=== PATIENT | female | born 1960 | race American Indian/Alaskan Native ===

== ENCOUNTER 2016-08-26 14:09 | Emergency (ER) | payer SELFPAY ==
[2016-08-26 14:33] VITALS: BP 144/88
--- NOTE | 2016-08-26 14:44 | Emergency Department Report ---
Entered by AARON LIMA, acting as scribe for TU CRONIN NP. Chief Complaint: Chest Pain Stated Complaint: CHEST PAIN, HEART DX Time Seen by Provider: 08/26/16 14:34 - HPI History of Present Illness: 56 y/o non-toxic, non ill-appearing female in no acute distress presents to ED c /o chest pain beginning 2 days ago, described as a heavy and aching with persistent soreness, radiating to shoulders bilaterally and noting her pain has moved from left chest to right chest. Exacerbated by deep breaths. Denies radiation to jaw or extremity swelling. Reports Hx cardiac stents, heart disease. Endorses mild SOB. - ROS Review of Systems: + chest pain, aching, radiating + sob - abdominal pain, nausea, vomiting, extremity swelling - Exam Vital Signs: Vital Signs 08/26/16 14:29 Temperature 98.0 F Pulse Rate 74 Respiratory 18 Rate Blood Pressure 144/88 O2 Sat by Pulse 99 Oximetry Physical Exam: Cardio: Normal S1 S2 heart sounds, no murmurs Resp: Clear to auscultation bilaterally Pt is non-toxic, non ill appearing, no acute distress Nonreproducible Chest pain MSE screening note: Focused history and physical exam performed. Due to findings the following was ordered: CBC, troponin, cardiac CK, CMP, BNP, UA, CXR ED Disposition for MSE Condition: Stable This documentation as recorded by the scribe,AARON LIMA,accurately reflects the service I personally performed and the decisions made by MEHRDAD snider MARTIN, VELASQUEZ.
[2016-08-26 14:58] LABS: Basophils % (Auto) 0.4 % (0.0-1.8); Eosinophils % (Auto) 1.6 % (0.0-4.3); Hematocrit 37.4 % (30.3-42.9); Hemoglobin 12.1 gm/dl (10.1-14.3); Mean Corpuscular HGB Conc 33 % (30-34); Mean Corpuscular Hemoglobin 30 pg (28-32); Mean Corpuscular Volume 91 fl (79-97); Platelet Count 195 K/mm3 (140-440); Red Blood Count 4.12 M/mm3 (3.65-5.03); Red Cell Distribution Width 12.9 % (13.2-15.2)
[2016-08-26 15:24] LABS: Creatine Kinase MB 1.6 ng/mL (0.0-4.0)
[2016-08-26 15:27] LABS: Alanine Aminotransferase 24 units/L (7-56); Albumin 4.2 g/dL (3.9-5); Albumin/Globulin Ratio 1.4 %; Alkaline Phosphatase 59 units/L (35-129); Anion Gap 18 mmol/L; BUN/Creatinine Ratio 18.75; Blood Urea Nitrogen 15 mg/dL (7-17); Calcium 9.3 mg/dL (8.4-10.2); Carbon Dioxide 25 mmol/L (22-30); Creatine Kinase 137 units/L (30-135); Glucose 104 mg/dL (65-100); Sodium 139 mmol/L (137-145); Total Protein 7.1 g/dL (6.3-8.2)
[2016-08-26] MEDS ORDERED: ASPIRIN PO ONE (16:07)
[2016-08-26 19:31] LABS: Bacteria,Urine 1+ /HPF (Negative); Bilirubin,Urine NEG (Negative); Blood,Urine MOD (Negative); Ketones,Urine NEG (Negative); Leukocyte Esterase,Urine LG (Negative); Mucus,Urine FEW /HPF; Nitrite,Urine NEG (Negative); Protein,Urine <15 mg/dL mg/dL (Negative); Urobilinogen,Urine < 2.0 mg/dL (<2.0)
--- NOTE | 2016-08-27 07:28 | XRay Report ---
ROUTINE CHEST, TWO VIEWS: HISTORY: chest pain. The trachea, heart, mediastinal contour, lung rosenberg and bony thorax are unremarkable. IMPRESSION: Unremarkable chest x-ray.
--- NOTE | 2016-08-29 19:22 | ED Elopement Review ---
ED Pt Elopement review - Results review Lab results: Laboratory Tests 08/26/16 08/26/16 08/26/16 14:42 14:42 19:01 WBC 7.0 RBC 4.12 Hgb 12.1 Hct 37.4 MCV 91 MCH 30 MCHC 33 RDW 12.9 L Plt Count 195 Lymph % (Auto) 32.0 [place] % (Auto) 7.5 H Eos % (Auto) 1.6 Baso % (Auto) 0.4 Lymph # 2.2 [place] # 0.5 Eos # 0.1 Baso # 0.0 Seg Neutrophils % 58.5 Seg Neutrophils # 4.1 Sodium 139 Potassium 4.0 Chloride 100.0 Carbon Dioxide 25 Anion Gap 18 BUN 15 Creatinine 0.8 Estimated GFR > 60 BUN/Creatinine Ratio 18.75 Glucose 104 H Calcium 9.3 Total Bilirubin 0.60 AST 22 ALT 24 Alkaline Phosphatase 59 Total Creatine Kinase 137 H CK-MB (CK-2) 1.6 CK-MB (CK-2) Rel Index 1.1 Troponin T < 0.010 NT-Pro-B Natriuret Pep 76.06 Total Protein 7.1 Albumin 4.2 Albumin/Globulin Ratio 1.4 Urine Color Yellow Urine Turbidity Slightly-cloudy Urine pH 5.0 Ur Specific Bassett 1.018 Urine Protein <15 mg/dl Urine Glucose (UA) Neg Urine Ketones Neg Urine Blood Mod Urine Nitrite Neg Urine Bilirubin Neg Urine Urobilinogen < 2.0 Ur Leukocyte Esterase Lg Urine WBC (Auto) 2.0 Urine RBC (Auto) 9.0 U Epithel Cells (Auto) 11.0 Urine Bacteria (Auto) 1+ Urine Mucus Few - Call Back decision Pt Call Back Decision: No action required
== END 2016-08-26 20:50 | disposition left against medical advice (07) ==
LOC: ED 14:09
DX: R07.9 Chest pain, unspecified (principal); M25.511 Pain in right shoulder; M25.512 Pain in left shoulder; Z53.21 Procedure and treatment not carried out due to patient leaving prior to being seen by health care provider
CPT/HCPCS: 36415; 71020; 80053; 81001; 82550; 82553; 83880; 84484; 85025; 93005; 93010

== ENCOUNTER 2017-01-07 17:56 | Inpatient (IN) | payer OTHER ==
[2017-01-07 18:59] LABS: Basophils % (Auto) 0.5 % (0.0-1.8); Eosinophils % (Auto) 3.1 % (0.0-4.3); Hematocrit 39.3 % (30.3-42.9); Hemoglobin 13.2 gm/dl (10.1-14.3); Mean Corpuscular HGB Conc 34 % (30-34); Mean Corpuscular Hemoglobin 29 pg (28-32); Mean Corpuscular Volume 87 fl (79-97); Platelet Count 186 K/mm3 (140-440); Red Blood Count 4.51 M/mm3 (3.65-5.03); White Blood Count 4.8 K/mm3 (4.5-11.0)
[2017-01-07 19:11] LABS: Anion Gap 19 mmol/L; Blood Urea Nitrogen 21 mg/dL (7-17); Calcium 9.6 mg/dL (8.4-10.2); Carbon Dioxide 24 mmol/L (22-30); Chloride 98.7 mmol/L (98-107); Glucose 148 mg/dL (65-100); Potassium 3.2 mmol/L (3.6-5.0); Sodium 138 mmol/L (137-145)
[2017-01-08] MEDS ORDERED: K-DUR PO ONE (02:08)
--- NOTE | 2017-01-08 02:09 | Emergency Department Report ---
ED General Adult HPI - General Chief complaint: Chest Pain Stated complaint: CHEST PAIN Time Seen by Provider: 01/08/17 02:07 Source: patient, RN notes reviewed Mode of arrival: Wheelchair Limitations: No Limitations - History of Present Illness Initial comments: This is a 56-year-old female, the patient is previously unknown to me. 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 She endorses diaphoresis, shortness of breath, palpitations and malaise. The symptoms are intermittent, and do not have exacerbating or relieving factors. There is no leg pain, there is no leg swelling, no recent trips greater than 4 hours, no recent hospital admissions, patient endorses no recent cardiac risk stratification or stress test. -: Gradual Location: chest Severity scale (0 -10): 5 Quality: aching Consistency: intermittent Improves with: none Worsens with: none Associated Symptoms: chest pain - Related Data Home Medications Medication Instructions Recorded Confirmed Last Taken Lisinopril/Hydrochlorothiazide 1 tab PO QDAY 06/13/13 01/08/17 12/09/16 [Zestoretic 20-12.5 mg] Metoprolol [Lopressor TAB] 50 mg PO BID 06/13/13 01/08/17 01/08/17 Previous Rx's Medication Instructions Recorded Last Taken Type Ibuprofen [Motrin] 800 mg PO TID PRN #20 tablet 06/13/13 11/09/16 Rx Allergies Allergy/AdvReac Type Severity Reaction Status Date / Time No Known Allergies Allergy Unverified 06/13/13 12:06 ED Review of Systems ROS: Stated complaint: CHEST PAIN Other details as noted in HPI Constitutional: malaise. denies: fever Eyes: denies: eye discharge ENT: denies: epistaxis Respiratory: denies: cough Cardiovascular: chest pain, palpitations Gastrointestinal: denies: vomiting Genitourinary: denies: dysuria Musculoskeletal: denies: back pain Skin: denies: lesions Neurological: weakness Psychiatric: anxiety ED Past Medical Hx - Past Medical History Previous Medical History?: Yes Hx Hypertension: Yes Hx Heart Attack/AMI: Yes (2005) Hx GERD: Yes Additional medical history: CAD - Surgical History Past Surgical History?: Yes Hx Coronary Stent: Yes Additional Surgical History: high cholesterol - Social History Smoking Status: Current Some Day Smoker Substance Use Type: Alcohol - Medications Home Medications: Home Medications Medication Instructions Recorded Confirmed Last Taken Type Ibuprofen [Motrin] 800 mg PO TID PRN #20 tablet 06/13/13 01/08/17 11/09/16 Rx Lisinopril/Hydrochlorothiazide 1 tab PO QDAY 06/13/13 01/08/17 12/09/16 History [Zestoretic 20-12.5 mg] Metoprolol [Lopressor TAB] 50 mg PO BID 06/13/13 01/08/17 01/08/17 History ED Physical Exam - General Limitations: No Limitations General appearance: alert, in no apparent distress - Head Head exam: Present: atraumatic, normocephalic - Eye Eye exam: Present: normal appearance, EOMI. Absent: nystagmus - ENT ENT exam: Present: normal exam, normal orophraynx, mucous membranes moist, normal external ear exam - Neck Neck exam: Present: normal inspection, full ROM. Absent: tenderness, meningismus - Respiratory Respiratory exam: Present: normal lung sounds bilaterally. Absent: respiratory distress, wheezes, rales, rhonchi, stridor, chest wall tenderness - Cardiovascular Cardiovascular Exam: Present: regular rate, normal rhythm, normal heart sounds. Absent: bradycardia, tachycardia, irregular rhythm, systolic murmur, diastolic murmur, rubs, gallop - GI/Abdominal GI/Abdominal exam: Present: soft, normal bowel sounds. Absent: distended, tenderness, guarding, rebound, rigid, pulsatile mass - Extremities Exam Extremities exam: Present: normal inspection, full ROM, normal capillary refill. Absent: tenderness, pedal edema, joint swelling, calf tenderness - Back Exam Back exam: Present: normal inspection, full ROM. Absent: tenderness, CVA tenderness (R), CVA tenderness (L), muscle spasm, paraspinal tenderness, vertebral tenderness - Neurological Exam Neurological exam: Present: alert, oriented X3, normal gait, other (Extraocular movements intact. Tongue midline. No facial droop. Facial sensation intact to light touch in the V1, V2, V3 distribution bilaterally. 5 and 5 strength in 4 extremities.. Sensation is intact to light touch in 4 extremities.). Absent : motor sensory deficit - Psychiatric Psychiatric exam: Present: normal affect, normal mood - Skin Skin exam: Present: warm, dry, intact, normal color. Absent: rash ED Course Vital Signs 01/07/17 01/08/17 01/08/17 18:24 01:10 01:16 Temperature 98.6 F Pulse Rate 90 72 74 Respiratory 16 16 13 Rate Blood Pressure 163/93 153/83 O2 Sat by Pulse 97 99 Oximetry 01/08/17 01:19 Temperature 96.8 F L Pulse Rate Respiratory 17 Rate Blood Pressure O2 Sat by Pulse 100 Oximetry ED Medical Decision Making - Lab Data Result diagrams: 01/07/17 18:38 01/07/17 18:38 Vital Signs 01/07/17 01/08/17 01/08/17 18:24 01:10 01:16 Temperature 98.6 F Pulse Rate 90 72 74 Respiratory 16 16 13 Rate Blood Pressure 163/93 153/83 O2 Sat by Pulse 97 99 Oximetry 01/08/17 01/08/17 01:19 04:22 Temperature 96.8 F L Pulse Rate Respiratory 17 Rate Blood Pressure 148/78 O2 Sat by Pulse 100 Oximetry Lab Results 01/07/17 01/07/17 01/07/17 Range/Units 18:38 18:38 20:45 WBC 4.8 (4.5-11.0) K/mm3 RBC 4.51 (3.65-5.03) M/mm3 Hgb 13.2 (10.1-14.3) gm/dl Hct 39.3 (30.3-42.9) % MCV 87 (79-97) fl MCH 29 (28-32) pg MCHC 34 (30-34) % RDW 13.0 L (13.2-15.2) % Plt Count 186 (140-440) K/mm3 Lymph % (Auto) 33.7 (13.4-35.0) % [place] % (Auto) 6.6 (0.0-7.3) % Eos % (Auto) 3.1 (0.0-4.3) % Baso % (Auto) 0.5 (0.0-1.8) % Lymph # 1.6 (1.2-5.4) K/mm3 [place] # 0.3 (0.0-0.8) K/mm3 Eos # 0.1 (0.0-0.4) K/mm3 Baso # 0.0 (0.0-0.1) K/mm3 Seg Neutrophils % 56.1 (40.0-70.0) % Seg Neutrophils # 2.7 (1.8-7.7) K/mm3 Sodium 138 (137-145) mmol/L Potassium 3.2 L (3.6-5.0) mmol/L Chloride 98.7 (98-107) mmol/L Carbon Dioxide 24 (22-30) mmol/L Anion Gap 19 mmol/L BUN 21 H (7-17) mg/dL Creatinine 0.6 L (0.7-1.2) mg/dL Estimated GFR > 60 ml/min BUN/Creatinine Ratio 35.00 % Glucose 148 H (65-100) mg/dL Calcium 9.6 (8.4-10.2) mg/dL Magnesium (1.7-2.3) mg/dL Troponin T < 0.010 < 0.010 (0.00-0.029) ng/mL 01/08/17 01/08/17 Range/Units 00:19 02:30 WBC (4.5-11.0) K/mm3 RBC (3.65-5.03) M/mm3 Hgb (10.1-14.3) gm/dl Hct (30.3-42.9) % MCV (79-97) fl MCH (28-32) pg MCHC (30-34) % RDW (13.2-15.2) % Plt Count (140-440) K/mm3 Lymph % (Auto) (13.4-35.0) % [place] % (Auto) (0.0-7.3) % Eos % (Auto) (0.0-4.3) % Baso % (Auto) (0.0-1.8) % Lymph # (1.2-5.4) K/mm3 [place] # (0.0-0.8) K/mm3 Eos # (0.0-0.4) K/mm3 Baso # (0.0-0.1) K/mm3 Seg Neutrophils % (40.0-70.0) % Seg Neutrophils # (1.8-7.7) K/mm3 Sodium (137-145) mmol/L Potassium (3.6-5.0) mmol/L Chloride (98-107) mmol/L Carbon Dioxide (22-30) mmol/L Anion Gap mmol/L BUN (7-17) mg/dL Creatinine (0.7-1.2) mg/dL Estimated GFR ml/min BUN/Creatinine Ratio % Glucose (65-100) mg/dL Calcium (8.4-10.2) mg/dL Magnesium 2.20 (1.7-2.3) mg/dL Troponin T < 0.010 (0.00-0.029) ng/mL - EKG Data 01/08/17 04:23 EKG #1 demonstrates normal sinus, 82 bpm, high left ventricular voltage, normal axis, QTC prolonged, not morphologically consistent with STEMI. EKG #2 demonstrates normal sinus, 71 bpm, normal axis, not morphologically consistent with STEMI - Radiology Data Radiology results: image reviewed interpreted by me: X-ray of the chest is negative for acute disease - Medical Decision Making Differential diagnosis: Acute coronary syndrome, unstable angina, pneumonia, anxiety, conversion disorder, electrolyte derangement Assessment and plan: 56-year-old female with stent, poor compliance with aspirin , poor compliance with outpatient follow-up, some concerning historical factors , moderate risk by heart score, no pulmonary embolus or DVT risk factors, low risk by well's criteria, to be admitted for acute coronary syndrome risk stratification. Incidentally found to be hypokalemic, this is corrected. Case is presented to the Hospital physician, Dr. Martino, who accepts the patient to his service. Critical care attestation.: If time is entered above; I have spent that time in minutes in the direct care of this critically ill patient, excluding procedure time. ED Disposition Clinical Impression: Chest pain, Hypokalemia Disposition: -09 OP ADMIT IP TO THIS HOSP Is pt being admited?: Yes Condition: Good
[2017-01-08] MEDS ORDERED: NITROSTAT SL PRN (03:34)
[2017-01-08] MEDS ORDERED: NITRO-BID 2% TP ONE (04:20)
[2017-01-08] MEDS: NITRO-BID 2% TP SCH ×4 (04:22→17:55)
[2017-01-08] MEDS ORDERED: MORPHINE IV PRN (04:44)
[2017-01-08] MEDS ORDERED: ZOFRAN IV PRN (04:46)
--- NOTE | 2017-01-08 06:54 | History and Physical Report ---
CHIEF COMPLAINT: Chest pain. HISTORY OF PRESENT ILLNESS: The patient is a 56-year-old female presenting with chest pain going on and off for about 4 days. Pain is in the precordial retrosternal area, radiates to the shoulder area and upper extremity and was associated with shortness of breath, diaphoresis, and palpitation. There was no history of nausea or vomiting. There was also no history of dizziness. The patient presented to the Emergency Room. The pain was relieved with pain medication. PAST MEDICAL HISTORY: Pertinent for hypertension, coronary artery disease status post myocardial infarction in 2005, also the patient has past history of gastroesophageal reflux disease. PAST SURGICAL HISTORY: Pertinent for stent placement. FAMILY HISTORY: Noncontributory. SOCIAL HISTORY: The patient smokes cigarettes, drinks alcohol occasionally, and does not use illicit drugs. MEDICATIONS: The patient is on ibuprofen 800 mg 3 times daily as needed for pain, lisinopril/HCTZ 20/12.5 one p.o. daily. The patient is also on metoprolol 50 mg by mouth twice daily. ALLERGIES: There are no known drug allergies. REVIEW OF SYSTEMS: CONSTITUTIONAL: There is no fever, no chills. Diaphoresis present. HEENT: There is no headache or sore throat. CARDIOVASCULAR SYSTEM: There is chest pain, but no orthopnea. RESPIRATORY SYSTEM: There is shortness of breath and no cough. GASTROINTESTINAL SYSTEM: There is no nausea, no vomiting, no abdominal pain, diarrhea or constipation. NEUROLOGICAL SYSTEM: There is no numbness, no dizziness, no altered mental status. MUSCULOSKELETAL SYSTEM: There is no joint pain or swelling. DERMATOLOGICAL SYSTEM: There is no skin rash or itching. GENITOURINARY: There is no dysuria, hematuria, or flank pain. Rest of system review is normal. PHYSICAL EXAMINATION: GENERAL: At the time of exam, the patient was found to be alert, oriented x 3 and not in acute distress. VITAL SIGNS: Shows temperature of 96.8 degrees Fahrenheit, pulse of 74, respiration of 13, blood pressure , O2 sat of 99% on room air. HEENT: Shows pupils appear to be equal, round, reactive to light and accommodating. Extraocular muscles are intact. NECK: Supple with no JVD or carotid bruit. CARDIOVASCULAR SYSTEM: Show first and second heart sounds with no gallops or murmurs. RESPIRATORY SYSTEM: Showed good air entry on both sides of the lungs with no abnormal breath sounds. GASTROINTESTINAL SYSTEM: Show abdomen to be full, soft, nontender with no organomegaly or rigidity. NEUROLOGICAL: Shows no focal deficit. MUSCULOSKELETAL SYSTEM: Show no joint swelling or tenderness. DERMATOLOGICAL SYSTEM: Showing no skin rash. GENITOURINARY SYSTEM: Showed no costovertebral angle tenderness. PERTINENT LABORATORY DATA AND IMAGING STUDIES: The patient has CBC done, which shows normal WBC, normal hemoglobin and normal hematocrit. CBC differential was unremarkable. Chemistry showed low potassium level of 3.2 and a slightly elevated BUN of 21 with an unremarkable creatinine and normal GFR of greater than 60. Cardiac enzyme: The patient had 3 sets of troponin level done that were unremarkable. Magnesium level came back normal. IMAGING STUDIES: The patient had chest x-ray done that shows hyperinflated lungs with no acute cardiopulmonary lesion. DIAGNOSES: 1. Chest pain. 2. Hypokalemia. PLAN: The patient will be admitted to medical floor on telemetry and will be n.p.o. for Lexiscan stress test in the morning. The patient will be on nitro paste 1 inch to anterior chest wall q. 6 hours and will be on aspirin 325 mg by mouth daily. The patient will be on heparin 5000 units subQ q. 12 hours for DVT prophylaxis and will be on sublingual nitroglycerin 0.4 mg every 5 minutes as needed for breakthrough chest pain. The patient has already had one dose of potassium chloride 40 mEq given in the Emergency Room and will have basic metabolic panel checked this morning. The patient will be on oxygen by nasal cannula at 2 liters per minute and will be on morphine 2 mg IV q. 2 hours as needed for pain. The patient will also be on IV Zofran 4 mg every 6 hours for nausea and vomiting. Further management of the patient's condition will be dependent on the stress test. JOB# [id number] OCN/NTS
--- NOTE | 2017-01-08 07:27 | XRay Report ---
ROUTINE CHEST, TWO VIEWS: HISTORY: chest pain. The trachea, heart, mediastinal contour, lung rosenberg and bony thorax are unremarkable. IMPRESSION: Unremarkable chest x-ray. No change since 08/26/16.
[2017-01-08 07:40] LABS: Anion Gap 18 mmol/L; BUN/Creatinine Ratio 33.33; Blood Urea Nitrogen 20 mg/dL (7-17); Carbon Dioxide 24 mmol/L (22-30); Chloride 103.2 mmol/L (98-107); Glucose 105 mg/dL (65-100); Sodium 141 mmol/L (137-145)
[2017-01-08] MEDS ORDERED: LEXISCAN IV ONE (08:55)
[2017-01-08] MEDS ORDERED: NON-FORMULARY (Lisinopril/Hydrochlorothiazide [Zestoretic 20-12.5 Mg] 1 TAB) PO SCH (10:00)
--- NOTE | 2017-01-08 10:15 | Progress Note ---
Assessment and Plan Assessment and plan: Chest pain. Patient reportedly with history of CAD and coronary stent placement. Follow-up stress thallium results. Continue aspirin, ADRIEL inhibitor and beta komal. Cardiology consultation pending. Hypertension. Resume antihypertensive medications. Lopressor and Zestril. Anemia. Monitor H&H. Hypercholesterolemia History Interval history: No new issues since admission. Hospitalist Physical - Constitutional Vitals: Temp Pulse Resp BP Pulse Ox 97.5 F L 78 18 149/80 99 01/08/17 05:30 01/08/17 05:30 01/08/17 05:30 01/08/17 05:30 01/08/17 05:30 General appearance: Present: no acute distress, well-nourished - EENT Eyes: Present: PERRL, EOM intact ENT: hearing intact, clear oral mucosa, dentition normal - Neck Neck: Present: supple, normal ROM - Respiratory Respiratory effort: normal Respiratory: bilateral: CTA - Cardiovascular Rhythm: regular Heart Sounds: Present: S1 & S2. Absent: gallop, rub - Extremities Extremities: no ischemia, No edema, Full ROM - Abdominal General gastrointestinal: soft, non-tender, non-distended, normal bowel sounds - Integumentary Integumentary: Present: clear, warm, dry - Neurologic Neurologic: CNII-XII intact, moves all extremities Results - Labs CBC & Chem 7: 01/07/17 18:38 01/08/17 06:40 Labs: Laboratory Last Values WBC 4.8 K/mm3 (4.5-11.0) 01/07/17 18:38 RBC 4.51 M/mm3 (3.65-5.03) 01/07/17 18:38 Hgb 13.2 gm/dl (10.1-14.3) 01/07/17 18:38 Hct 39.3 % (30.3-42.9) 01/07/17 18:38 MCV 87 fl (79-97) 01/07/17 18:38 MCH 29 pg (28-32) 01/07/17 18:38 MCHC 34 % (30-34) 01/07/17 18:38 RDW 13.0 % (13.2-15.2) L 01/07/17 18:38 Plt Count 186 K/mm3 (140-440) 01/07/17 18:38 Lymph % (Auto) 33.7 % (13.4-35.0) 01/07/17 18:38 [place] % (Auto) 6.6 % (0.0-7.3) 01/07/17 18:38 Eos % (Auto) 3.1 % (0.0-4.3) 01/07/17 18:38 Baso % (Auto) 0.5 % (0.0-1.8) 01/07/17 18:38 Lymph # 1.6 K/mm3 (1.2-5.4) 01/07/17 18:38 [place] # 0.3 K/mm3 (0.0-0.8) 01/07/17 18:38 Eos # 0.1 K/mm3 (0.0-0.4) 01/07/17 18:38 Baso # 0.0 K/mm3 (0.0-0.1) 01/07/17 18:38 Seg Neutrophils % 56.1 % (40.0-70.0) 01/07/17 18:38 Seg Neutrophils # 2.7 K/mm3 (1.8-7.7) 01/07/17 18:38 Sodium 141 mmol/L (137-145) 01/08/17 06:40 Potassium 4.0 mmol/L (3.6-5.0) D 01/08/17 06:40 Chloride 103.2 mmol/L (98-107) 01/08/17 06:40 Carbon Dioxide 24 mmol/L (22-30) 01/08/17 06:40 Anion Gap 18 mmol/L 01/08/17 06:40 BUN 20 mg/dL (7-17) H 01/08/17 06:40 Creatinine 0.6 mg/dL (0.7-1.2) L 01/08/17 06:40 Estimated GFR > 60 ml/min 01/08/17 06:40 BUN/Creatinine Ratio 33.33 % 01/08/17 06:40 Glucose 105 mg/dL (65-100) H 01/08/17 06:40 Calcium 9.0 mg/dL (8.4-10.2) 01/08/17 06:40 Magnesium 2.20 mg/dL (1.7-2.3) 01/08/17 02:30 Troponin T < 0.010 ng/mL (0.00-0.029) 01/08/17 00:19
--- NOTE | 2017-01-08 11:26 | Consultation ---
History of Present Illness Consult date: 01/08/17 Requesting physician: CHON MOREJON Consult reason: chest pain History of present illness: The pt is a 56 YO female with a past medical history significant for HTN, HLP, CAD s/p [place] with PCI of proximal left circ in 2005 at [place], anemia requiring multiple blood transfusions, anxiety, tobacco use (smokes 3-4 cigarettes daily) and ETOH use (drinks 3 glasses of wine daily). She is previously unknown to our practice. She states the last savings counselor she saw was at [place] in April,. She presented with c/o chest pain for the past 3-4 days prior to arrival. She describes the pain as a nonexertional, nonradiating, intermittent left sided aching pain which was associated with SOB, diaphoresis, palpitations and lightheadedness. The pain is aggravated by lying flat and alleviated by sitting upright. She also reports some right sided chest soreness for 1-2 days [employer]CH[employer]ICAL [employer]ICE [employer]. She denies any recent fever, chills, cough, n/v or syncope. On evaluation, she states that the chest pain has resolved since nitro patch was placed. The pain is not reproducible with palpation. She underwent stress test this AM and results are pending. Past History Past Medical History: CAD, hypertension, hyperlipidemia, other (PCI in 2005) Past Surgical History: hysterectomy Social history: smoking, alcohol abuse. denies: prescription drug abuse Family history: diabetes Medications and Allergies Allergies Allergy/AdvReac Type Severity Reaction Status Date / Time No Known Allergies Allergy Unverified 06/13/13 12:06 Home Medications Medication Instructions Recorded Confirmed Last Taken Type Ibuprofen [Motrin] 800 mg PO TID PRN #20 tablet 06/13/13 01/08/17 11/09/16 Rx Lisinopril/Hydrochlorothiazide 1 tab PO QDAY 06/13/13 01/08/17 12/09/16 History [Zestoretic 20-12.5 mg] Metoprolol [Lopressor TAB] 50 mg PO BID 06/13/13 01/08/17 01/08/17 History Active Meds: Active Medications Aspirin (Aspirin) 325 mg PO DAILY [facility] Heparin Sodium (Porcine) (Heparin) 5,000 unit SUB-Q Q12HR [facility]ERY[facility] Hydrochlorothiazide (Hctz) 12.5 mg PO QDAY [facility] Lisinopril (Zestril) 20 mg PO QDAY [facility] Metoprolol Tartrate (Lopressor) 50 mg PO BID [facility] Morphine Sulfate (Morphine) 2 mg IV Q2H PRN PRN Reason: Pain, Moderate (4-6) Nitroglycerin (Nitrostat) 0.4 mg SL Q5M PRN PRN Reason: Chest Pain Nitroglycerin (Nitro-Bid 2%) 1 inch TP QIDNTG [facility] PRN Reason: Protocol Last Admin: 01/08/17 04:22 Dose: 1 inch Ondansetron HCl (Zofran) 4 mg IV Q6H PRN PRN Reason: Nausea And Vomiting Review of Systems Constitutional: sweats, no weight loss, no weight gain, no fever, no chills Ears, nose, mouth and throat: no ear pain, no nose pain, no sinus pressure, no sinus pain Cardiovascular: chest pain, palpitations, lightheadedness, shortness of breath, high blood pressure, no orthopnea, no rapid/irregular heart beat, no edema, no syncope, no dyspnea on exertion, no paroxysmal nocturnal dyspnea, no leg edema, no decreased exercise tolerance Respiratory: shortness of breath, no cough, no dyspnea on exertion, no congestion, no wheezing, no pain on inspiration Gastrointestinal: no abdominal pain, no nausea, no vomiting, no diarrhea, no constipation, no change in bowel habits Genitourinary Female: no pelvic pain, no flank pain, no dysuria, no urinary frequency, no urgency Musculoskeletal: no neck stiffness, no neck pain, no shooting arm pain, no arm numbness/tingling, no low back pain, no shooting leg pain, no leg numbness/ tingling, no redness of joints Integumentary: no rash, no pruritis, no redness, no sores, no wounds Neurological: no head injury, no paralysis, no weakness, no parathesias, no numbness, no tingling, no seizures Psychiatric: anxiety Endocrine: no cold intolerance, no heat intolerance Hematologic/Lymphatic: no easy bruising, no easy bleeding, no lymphadenopathy Allergic/Immunologic: no urticaria, no wheezing, no persistent infections Physical Examination Vital Signs Temp Pulse Resp BP Pulse Ox 98.6 F 90 16 163/93 97 01/07/17 18:24 01/07/17 18:24 01/07/17 18:24 01/07/17 18:24 01/07/17 18:24 General appearance: no acute distress HEENT: Positive: PERRL, Normocephaly, Mucus Membranes Moist Neck: Positive: neck supple, trachea midline Cardiac: Positive: Reg Rate and Rhythm, S1/S2, Systolic Murmur Lungs: Positive: clear to auscultation Neuro: Positive: Grossly Intact, Cranial Nerve 2-12 Intact Abdomen: Positive: Unremarkable, Soft, Active Bowel Sounds. Negative: Tender Skin: Positive: Clear. Negative: Rash Musculoskeletal: No Fluid Collection, No Pain, Normal Range of Motion Extremities: Absent: edema Results 01/07/17 18:38 01/08/17 06:40 Comprehensive Metabolic Panel 01/08/17 Range/Units 06:40 Sodium 141 (137-145) mmol/L Potassium 4.0 D (3.6-5.0) mmol/L Chloride 103.2 (98-107) mmol/L Carbon Dioxide 24 (22-30) mmol/L BUN 20 H (7-17) mg/dL Creatinine 0.6 L (0.7-1.2) mg/dL Glucose 105 H (65-100) mg/dL Calcium 9.0 (8.4-10.2) mg/dL - Imaging and Cardiology Echo: pending EKG: image reviewed EKG interpretations - Telemetry EKG Rhythm: Sinus Rhythm - EKG Sinus rhythms and dysrhythmias: sinus rhythm Repolarization changes or abnormalities: nonspecific abnormality, ST segment, and/or T wave Assessment and Plan Assessment: Chest pain, atypical - ECG with NAF; troponin negative for AMI x 3 sets CAD s/p SC with PCI of proximal left circ in 2005 at [place] HTN HLP Hypokalemia - repleted H/o anemia requiring multiple blood transfusions - H/H currently WNL Tobacco use / ETOH use - cessation encouraged Plan: Lexiscan MPI stress test this AM was negative for ischemia, EF 63%. Obtain echo. Cont ASA 325, lopressor and lisinopril/HCTZ. Titrate as necessary for BP optimization. Obtain lipid panel. Plan to initiate lovastatin as OP d/t pt's current lack of insurance and financial difficulties. Assessment and plan reviewed with pt at bedside. The patient has been seen in conjunction with Dr. Agrawal who agrees with the assessment and plan of care.
[2017-01-08] MEDS: HCTZ PO SCH (11:38)
[2017-01-08] MEDS: ASPIRIN PO SCH (11:38)
[2017-01-08] MEDS: ZESTRIL PO SCH (11:40)
[2017-01-08] MEDS: LOPRESSOR PO SCH ×2 (11:42→21:30)
[2017-01-08] MEDS: HEPARIN SUB-Q SCH ×2 (11:43→21:29)
[2017-01-09 05:58] VITALS: BP 141/78
[2017-01-09] MEDS: NITRO-BID 2% TP SCH ×2 (06:43→09:30)
--- NOTE | 2017-01-09 07:49 | Discharge Summary ---
Providers - Providers Date of Admission: 01/08/17 03:33 Date of discharge: 01/09/17 Attending physician: CHON MOREJON 01/08/17 07:57 Consult to Physician [CONS] Routine Consulting Provider: JENIFER JIMENEZ Reason For Exam: cp Place consult to:: Dr. Jimenez Notified:: Alvin ISAAC Was contact made?: Yes If yes, spoke with:: Dr. Agrawal Time called:: 08:57 Primary care physician: TREE SAPPER Hospitalization Reason for admission: cp Condition: Good Hospital course: The pt is a 56 YO female with a past medical history significant for HTN, HLP, CAD s/p [place] with PCI of proximal left circ in 2005 at [place], anemia requiring multiple blood transfusions, anxiety, tobacco use (smokes 3-4 cigarettes daily) and ETOH use (drinks 3 glasses of wine daily) presented with c/o chest pain for the past 3-4 days prior to admission. She described the pain as a nonexertional , nonradiating, intermittent left sided aching pain which was associated with SOB, diaphoresis, palpitations and lightheadedness. The pain was aggravated by lying flat and alleviated by sitting upright. 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 She denied any recent fever, chills, cough, n/v or syncope. The patient was seen by cardiology in consultation. The patient had EKG with no acute findings. Troponin negative for a [place] 3 sets. Lexiscan stress test was found to be negative. Ejection fraction was noted to be 63%. Echocardiogram was completed and will be followed up with cardiology as an outpatient. D-dimer was found to be negative. Dedicated discharge time 31 minutes. Disposition: DC-01 TO HOME OR SELFCARE Time spent for discharge: 31 Core Measure Documentation - Palliative Care Palliative Care/ Comfort Measures: Not Applicable - Core Measures Any of the following diagnoses?: none Exam - Constitutional Vitals: Temp Pulse Resp BP Pulse Ox 97.8 F 67 18 141/78 100 01/09/17 05:51 01/09/17 06:43 01/09/17 05:51 01/09/17 06:43 01/09/17 05:51 General appearance: Present: no acute distress, well-nourished - EENT Eyes: Present: PERRL ENT: hearing intact, clear oral mucosa - Neck Neck: Present: supple, normal ROM - Respiratory Respiratory effort: normal Respiratory: bilateral: CTA - Cardiovascular Heart Sounds: Present: S1 & S2. Absent: rub, click - Extremities Extremities: pulses symmetrical, No edema Peripheral Pulses: within normal limits - Abdominal General gastrointestinal: Present: soft, non-tender, non-distended, normal bowel sounds Female genitourinary: Present: normal - Integumentary Integumentary: Present: clear, warm, dry - Musculoskeletal Musculoskeletal: gait normal, strength equal bilaterally - Psychiatric Psychiatric: appropriate mood/affect, intact judgment & insight - Neurologic Neurologic: CNII-XII intact, moves all extremities Plan Activity: no restrictions Weight Bearing Status: Full Weight Bearing Diet: regular Follow up with: PRIMARY CARE, [Primary Care Provider] - 3-5 Days Prescriptions: Aspirin [Aspirin TAB] 325 mg PO DAILY #30 tablet Lisinopril/Hydrochlorothiazide [Zestoretic 20-12.5 mg] 1 tab PO QDAY #30 tab Metoprolol [Lopressor TAB] 50 mg PO BID #60 tablet Pantoprazole [Protonix TAB] 20 mg PO QDAY #30 tablet.
[2017-01-09] MEDS: ASPIRIN PO SCH (09:29)
[2017-01-09] MEDS: ZESTRIL PO SCH (09:29)
[2017-01-09] MEDS: LOPRESSOR PO SCH (09:29)
[2017-01-09] MEDS: HCTZ PO SCH (09:29)
[2017-01-09] MEDS: HEPARIN SUB-Q SCH (09:30)
== END 2017-01-09 10:44 | disposition home or self-care (01) | DRG 313 ==
LOC: ED 17:56 → 4A 01-08 03:33
PROVIDERS: ADMIT Internal Medicine; ATTEND Hospitalist
DX: R07.89 Other chest pain (principal); I10 Essential (primary) hypertension; E78.5 Hyperlipidemia, unspecified; I25.10 Atherosclerotic heart disease of native coronary artery without angina pectoris; F41.9 Anxiety disorder, unspecified; F17.210 Nicotine dependence, cigarettes, uncomplicated; K21.9 Gastro-esophageal reflux disease without esophagitis; E87.6 Hypokalemia; D64.9 Anemia, unspecified; E78.00 Pure hypercholesterolemia, unspecified; Z90.710 Acquired absence of both cervix and uterus; I25.2 Old myocardial infarction; Z72.89 Other problems related to lifestyle; Z95.5 Presence of coronary angioplasty implant and graft; Z79.899 Other long term (current) drug therapy; Z83.3 Family history of diabetes mellitus; Z71.6 Tobacco abuse counseling
CPT/HCPCS: 36415; 71020; 78452; 80048; 80061; 83735; 84484; 85025; 85379; 93005; 93010; 93017; 93306; 94760; 99285; 99406; A9502; J1644; J2270; J2785

== ENCOUNTER 2017-11-24 18:09 | Emergency (ER) | payer OTHER ==
[2017-11-24 18:51] VITALS: BP 172/94
[2017-11-24] MEDS ORDERED: MOTRIN PO ONE (20:11)
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
== END 2017-11-24 22:13 | disposition home or self-care (01) ==
LOC: ED 18:09
DX: S39.012A Strain of muscle, fascia and tendon of lower back, initial encounter (principal); S13.4XXA Sprain of ligaments of cervical spine, initial encounter; E78.00 Pure hypercholesterolemia, unspecified; F17.200 Nicotine dependence, unspecified, uncomplicated; I10 Essential (primary) hypertension; I25.2 Old myocardial infarction; K21.9 Gastro-esophageal reflux disease without esophagitis; Z79.82 Long term (current) use of aspirin; Z95.1 Presence of aortocoronary bypass graft; V89.2XXA Person injured in unspecified motor-vehicle accident, traffic, initial encounter; Y93.89 Activity, other specified; Y92.488 Other paved roadways as the place of occurrence of the external cause; Y99.8 Other external cause status
CPT/HCPCS: 72040; 72100; 99283

== ENCOUNTER 2019-05-19 10:37 | Emergency (ER) | payer OTHER ==
[2019-05-19 13:25] LABS: Basophils # (Auto) 0.1 K/mm3 (0.0-0.1); Basophils % (Auto) 0.9 % (0.0-1.8); Eosinophils # (Auto) 0.2 K/mm3 (0.0-0.4); Eosinophils % (Auto) 2.5 % (0.0-4.3); Hematocrit 36.9 % (30.3-42.9); Hemoglobin 12.6 gm/dl (10.1-14.3); Lymphocytes # (Auto) 3.9 K/mm3 (1.2-5.4); Lymphocytes % (Auto) 54.7 % (13.4-35.0); Mean Corpuscular HGB Conc 34 % (30-34); Mean Corpuscular Volume 87 fl (79-97); Monocytes # (Auto) 0.4 K/mm3 (0.0-0.8); Monocytes % (Auto) 5.8 % (0.0-7.3); Platelet Count 236 K/mm3 (140-440); Red Blood Count 4.25 M/mm3 (3.65-5.03)
--- NOTE | 2019-05-19 13:33 | XRay Report ---
CHEST 2 VIEWS INDICATION / CLINICAL INFORMATION: Chest pain. COMPARISON: 2 views of the chest from 01/08/2017. FINDINGS: SUPPORT DEVICES: None. HEART / MEDIASTINUM: No significant abnormality. LUNGS / PLEURA: There is mild left basilar atelectasis/scarring. The lungs are otherwise clear. No si gnificant pleural effusion. No pneumothorax. ADDITIONAL FINDINGS: No significant additional findings. IMPRESSION: 1. No acute abnormality of the chest. 2. Mild left basilar atelectasis/scarring. Signer Name: Gavino Schreiber MD Signed: 05/19/2019 1:29 PM Workstation Name: [id number]
[2019-05-19 13:36] LABS: INR 1.03 (0.87-1.13)
[2019-05-19 13:37] LABS: Partial Thromboplastin Time 32.5 Sec. (24.2-36.6)
[2019-05-19 14:27] LABS: Alanine Aminotransferase 76 units/L (7-56); Albumin 4.2 g/dL (3.9-5); BUN/Creatinine Ratio 20; Blood Urea Nitrogen 12 mg/dL (7-17); Calcium 9.3 mg/dL (8.4-10.2); Hemolysis Index 33
--- NOTE | 2019-05-19 15:05 | Emergency Department Report ---
ED General Adult HPI - General Chief complaint: Chest Pain Stated complaint: CHEST PAIN Time Seen by Provider: 05/19/19 11:21 Source: patient, EMS Mode of arrival: Ambulatory Limitations: No Limitations - History of Present Illness Initial comments: Patient is a 59-year-old female presents the emergency room with complaints of substernal chest pain that began a couple days ago. She states it feels like a squeezing sensation. She states that she also has had abdominal distention and generalized abdominal pain. She states about a year ago she had a scan of her abdomen which she states they "found something but she does not know what it was". She denies any nausea, vomiting, diarrhea, shortness of breath, leg swelling, recent travel, recent surgery, hormone use. Past medical history of hypertension, anemia, RI with one stent. She states that she had a stress test about one to 2 years ago which she states was normal. She has not followed up with a machine sizer. She states that she drinks approximately a sixpack of beer a weekend. She states that she also smokes daily. - Related Data Previous Rx's Medication Instructions Recorded Last Taken Type Famotidine [Pepcid] 40 mg PO QHS #30 tablet 05/19/19 Unknown Rx Metoprolol [Lopressor TAB] 50 mg PO BID #60 tablet 05/19/19 Unknown Rx Sucralfate [Carafate] 1 gm PO ACHS #21 tablet 05/19/19 Unknown Rx amLODIPine 5 mg PO QDAY #30 tablet 05/19/19 Unknown Rx Allergies Allergy/AdvReac Type Severity Reaction Status Date / Time No Known Allergies Allergy Unverified 06/13/13 12:06 ED Review of Systems ROS: Stated complaint: CHEST PAIN Other details as noted in HPI Comment: All other systems reviewed and negative ED Past Medical Hx - Past Medical History Previous Medical History?: Yes Hx Hypertension: Yes Hx Heart Attack/AMI: Yes (2005) Hx Congestive Heart Failure: No Hx Diabetes: No Hx GERD: Yes Hx Asthma: No Hx COPD: No Hx Dementia: No Additional medical history: CAD, high cholesterol - Surgical History Past Surgical History?: Yes Hx Coronary Stent: Yes Additional Surgical History: hysterectomy - Social History Smoking Status: Current Every Day Smoker Substance Use Type: Alcohol - Medications Home Medications: Home Medications Medication Instructions Recorded Confirmed Last Taken Type Famotidine [Pepcid] 40 mg PO QHS #30 tablet 05/19/19 Unknown Rx Metoprolol [Lopressor TAB] 50 mg PO BID #60 tablet 05/19/19 Unknown Rx Sucralfate [Carafate] 1 gm PO ACHS #21 tablet 05/19/19 Unknown Rx amLODIPine 5 mg PO QDAY #30 tablet 05/19/19 Unknown Rx ED Physical Exam - General Limitations: No Limitations General appearance: alert, in no apparent distress - Head Head exam: Present: atraumatic, normocephalic - Eye Eye exam: Present: normal appearance - ENT ENT exam: Present: mucous membranes moist - Respiratory Respiratory exam: Present: normal lung sounds bilaterally. Absent: respiratory distress, wheezes, rales, rhonchi, stridor, chest wall tenderness, accessory muscle use, decreased breath sounds, prolonged expiratory - Cardiovascular Cardiovascular Exam: Present: regular rate, normal rhythm, normal heart sounds. Absent: systolic murmur, diastolic murmur, rubs, gallop - GI/Abdominal GI/Abdominal exam: Present: soft, distended, tenderness (mild generalized), normal bowel sounds. Absent: guarding, rebound, rigid - Neurological Exam Neurological exam: Present: alert, oriented X3 - Psychiatric Psychiatric exam: Present: normal affect, normal mood - Skin Skin exam: Present: warm, dry, intact ED Course Vital Signs 05/19/19 05/19/19 05/19/19 11:07 11:09 11:10 Temperature Pulse Rate 65 65 Respiratory 16 20 18 Rate Blood Pressure 166/88 O2 Sat by Pulse 99 99 Oximetry 05/19/19 05/19/19 05/19/19 11:15 11:22 11:30 Temperature 98.0 F Pulse Rate 65 61 Respiratory 17 16 Rate Blood Pressure 164/90 163/91 O2 Sat by Pulse 99 100 Oximetry 05/19/19 05/19/19 05/19/19 11:46 12:16 12:30 Temperature Pulse Rate 73 62 70 Respiratory 11 L 14 16 Rate Blood Pressure 163/91 158/90 155/97 O2 Sat by Pulse 99 99 98 Oximetry 05/19/19 05/19/19 05/19/19 12:46 13:00 15:18 Temperature Pulse Rate 65 64 Respiratory 13 14 20 Rate Blood Pressure 155/97 154/84 168/84 O2 Sat by Pulse 100 97 98 Oximetry 05/19/19 05/19/1920 15:30 15:56 16:00 Temperature Pulse Rate 65 66 Respiratory 20 12 Rate Blood Pressure 152/84 152/84 157/69 O2 Sat by Pulse 99 98 100 Oximetry 05/19/19 05/19/19 05/19/19 16:16 16:30 16:45 Temperature Pulse Rate 66 71 71 Respiratory 18 20 19 Rate Blood Pressure 154/84 133/57 133/57 O2 Sat by Pulse 98 98 99 Oximetry 05/19/19 05/19/19 05/19/19 17:00 17:16 17:30 Temperature Pulse Rate 64 Respiratory 18 Rate Blood Pressure 142/73 133/57 157/62 O2 Sat by Pulse 97 99 97 Oximetry 05/19/19 17:46 Temperature Pulse Rate Respiratory Rate Blood Pressure 142/73 O2 Sat by Pulse 99 Oximetry ED Medical Decision Making - Lab Data Result diagrams: 05/19/19 13:10 05/19/19 13:10 Lab Results 05/19/19 05/19/19 05/19/19 Range/Units 13:10 13:10 13:10 WBC 7.1 (4.5-11.0) K/mm3 RBC 4.25 (3.65-5.03) M/mm3 Hgb 12.6 (10.1-14.3) gm/dl Hct 36.9 (30.3-42.9) % MCV 87 (79-97) fl MCH 30 (28-32) pg MCHC 34 (30-34) % RDW 13.0 L (13.2-15.2) % Plt Count 236 (140-440) K/mm3 Lymph % (Auto) 54.7 H (13.4-35.0) % [place] % (Auto) 5.8 (0.0-7.3) % Eos % (Auto) 2.5 (0.0-4.3) % Baso % (Auto) 0.9 (0.0-1.8) % Lymph # 3.9 (1.2-5.4) K/mm3 [place] # 0.4 (0.0-0.8) K/mm3 Eos # 0.2 (0.0-0.4) K/mm3 Baso # 0.1 (0.0-0.1) K/mm3 Seg Neutrophils % 36.1 L (40.0-70.0) % Seg Neutrophils # 2.6 (1.8-7.7) K/mm3 PT 13.6 (12.2-14.9) Sec. INR 1.03 (0.87-1.13) APTT 32.5 (24.2-36.6) Sec. Sodium 142 (137-145) mmol/L Potassium 4.1 (3.6-5.0) mmol/L Chloride 103.8 (98-107) mmol/L Carbon Dioxide 24 (22-30) mmol/L Anion Gap 18 mmol/L BUN 12 (7-17) mg/dL Creatinine 0.6 L (0.7-1.2) mg/dL Estimated GFR > 60 ml/min BUN/Creatinine Ratio 20 % Glucose 114 H (65-100) mg/dL Calcium 9.3 (8.4-10.2) mg/dL Total Bilirubin 0.70 (0.1-1.2) mg/dL AST 53 H (5-40) units/L ALT 76 H (7-56) units/L Alkaline Phosphatase 66 (35-129) units/L Troponin T < 0.010 (0.00-0.029) ng/mL Total Protein 7.9 (6.3-8.2) g/dL Albumin 4.2 (3.9-5) g/dL Albumin/Globulin Ratio 1.1 % Lipase (13-60) units/L Urine Color (Yellow) Urine Turbidity (Clear) Urine pH (5.0-7.0) Ur Specific [place] (1.003-1.030) Urine Protein (Negative) mg/dL Urine Glucose (UA) (Negative) mg/dL Urine Ketones (Negative) mg/dL Urine Blood (Negative) Urine Nitrite (Negative) Urine Bilirubin (Negative) Urine Urobilinogen (<2.0) mg/dL Ur Leukocyte Esterase (Negative) Urine WBC (Auto) (0.0-6.0) /HPF Urine RBC (Auto) (0.0-6.0) /HPF U Epithel Cells (Auto) (0-13.0) /HPF Urine Mucus /HPF 05/19/19 05/19/19 05/19/19 Range/Units 13:10 15:23 15:24 WBC (4.5-11.0) K/mm3 RBC (3.65-5.03) M/mm3 Hgb (10.1-14.3) gm/dl Hct (30.3-42.9) % MCV (79-97) fl MCH (28-32) pg MCHC (30-34) % RDW (13.2-15.2) % Plt Count (140-440) K/mm3 Lymph % (Auto) (13.4-35.0) % [place] % (Auto) (0.0-7.3) % Eos % (Auto) (0.0-4.3) % Baso % (Auto) (0.0-1.8) % Lymph # (1.2-5.4) K/mm3 [place] # (0.0-0.8) K/mm3 Eos # (0.0-0.4) K/mm3 Baso # (0.0-0.1) K/mm3 Seg Neutrophils % (40.0-70.0) % Seg Neutrophils # (1.8-7.7) K/mm3 PT (12.2-14.9) Sec. INR (0.87-1.13) APTT (24.2-36.6) Sec. Sodium (137-145) mmol/L Potassium (3.6-5.0) mmol/L Chloride (98-107) mmol/L Carbon Dioxide (22-30) mmol/L Anion Gap mmol/L BUN (7-17) mg/dL Creatinine (0.7-1.2) mg/dL Estimated GFR ml/min BUN/Creatinine Ratio % Glucose (65-100) mg/dL Calcium (8.4-10.2) mg/dL Total Bilirubin (0.1-1.2) mg/dL AST (5-40) units/L ALT (7-56) units/L Alkaline Phosphatase (35-129) units/L Troponin T < 0.010 (0.00-0.029) ng/mL Total Protein (6.3-8.2) g/dL Albumin (3.9-5) g/dL Albumin/Globulin Ratio % Lipase 34 (13-60) units/L Urine Color Yellow (Yellow) Urine Turbidity Clear (Clear) Urine pH 7.0 (5.0-7.0) Ur Specific [place] 1.016 (1.003-1.030) Urine Protein <15 mg/dl (Negative) mg/dL Urine Glucose (UA) Neg (Negative) mg/dL Urine Ketones Neg (Negative) mg/dL Urine Blood Neg (Negative) Urine Nitrite Neg (Negative) Urine Bilirubin Neg (Negative) Urine Urobilinogen 2.0 (<2.0) mg/dL Ur Leukocyte Esterase Neg (Negative) Urine WBC (Auto) 1.0 (0.0-6.0) /HPF Urine RBC (Auto) 3.0 (0.0-6.0) /HPF U Epithel Cells (Auto) 3.0 (0-13.0) /HPF Urine Mucus Few /HPF - EKG Data EKG shows normal: sinus rhythm, axis, intervals, QRS complexes, ST-T waves Rate: normal - Radiology Data Radiology results: report reviewed CHEST 2 VIEWS INDICATION / CLINICAL INFORMATION: Chest pain. COMPARISON: 2 views of the chest from 01/08/2017. FINDINGS: SUPPORT DEVICES: None. HEART / MEDIASTINUM: No significant abnormality. LUNGS / PLEURA: There is mild left basilar atelectasis/scarring. The lungs are otherwise clear. No significant pleural effusion. No pneumothorax. ADDITIONAL FINDINGS: No significant additional findings. IMPRESSION: 1. No acute abnormality of the chest. 2. Mild left basilar atelectasis/scarring. Signer Name: Gavino Schreiber MD Signed: 05/19/2019 1:29 PM Workstation Name: [id number] Transcribed By: [place] Dictated By: Gavino Schreiber MD Electronically Authenticated By: Gavino Schreiber MD Signed Date/Time: 05/19/19 132 DD/ 1328 TD/TT: CT ABDOMEN AND PELVIS WITH CONTRAST HISTORY: MAIN: generalized abd pain, abdominal distension ABD SWELLING THAT COMES AND GOES AND GET HARD X 2 MONTHS . COMPARISON: None. TECHNIQUE: CT images of the abdomen and pelvis were obtained following administration of intravenous contrast. All CT scans at this location are performed using CT dose reduction for ALARA by means of automated exposure control. CONTRAST: 100 ml of intravenous contrast administered. FINDINGS: Lungs/bones: Lung bases are clear. There are mild degenerative changes in the spine and pelvis with no acute osseous abnormality. Abdomen/pelvis: There is hepatic steatosis with no focal mass identified. The gallbladder, spleen, pancreas, adrenals, right kidney, and proximal GI tract appear unremarkable except for questionable mild wall thickening along the distal stomach near the antrum and pylorus extending to the duodenal bulb. Proximal GI tract otherwise appears unremarkable. There is a small fat- containing umbilical hernia. Moderately advanced atherosclerotic disease is present in the abdominal aorta and branch vessels. Urinary bladder is unremarkable. Uterus is surgically absent. No pelvic free fluid. There is colonic diverticulosis with no acute inflammatory change identified. The terminal ileum and appendix appear normal. A tiny follicle is again seen in the left ovary. IMPRESSION: 1. Questionable mild wall thickening along the distal stomach extending to the duodenal bulb. Correlate for potential enteritis or ulcerative disease. 2. Additional incidental findings as above. Signer Name: Artem Luis MD Signed: 05/19/2019 4:24 PM Workstation Name: [id number] Transcribed By: RENETTA Dictated By: Artem Luis MD Electronically Authenticated By: Artem Luis MD Signed Date/Time: 05/19/191623 DD/ 17 TD/TT: - Medical Decision Making Patient is a 59-year-old female presents the emergency room with complaints of substernal chest pain that began a couple days ago. She states it feels like a squeezing sensation. She states that she also has had abdominal distention and generalized abdominal pain. She states about a year ago she had a scan of her abdomen which she states they "found something but she does not know what it was". She denies any nausea, vomiting, diarrhea, shortness of breath, leg swelling, recent travel, recent surgery, hormone use. Past medical history of hypertension, anemia, RI with one stent. She states that she had a stress test about one to 2 years ago which she states was normal. She has not followed up with a machine sizer. She states that she drinks approximately a sixpack of beer a weekend. She states that she also smokes daily. VSS. labs are stable, mild elevation in AST/ALT which could be due to her alcohol consumption, will have her follow up with GI for this, discussed alcohol cessation. troponin is negative x2. EKG WNL. heart score is 3,low risk for cardiac event, EKG WNL, trop negative x2, chest pain referral sheet faxed for urgent cardiology follow up. CXR: 1. No acute abnormality of the chest. 2. Mild left basilar atelectasis/scarring. CT abd pelvis: 1. Questionable mild wall thickening along the distal stomach extending to the duodenal bulb. Correlate for potential enteritis or ulcerative disease. 2. Additional incidental findings as above. pt given a GI cocktail and her symptoms improve. pt states she is running out of her blood pressure medications and asked for refills. refilled her home meds. pt also given prescription for carafate and pepcid. advised pt to please take medication as prescribed. Please follow the diet for gastritis. Please follow- up with a machine sizer. Please follow-up with a GI doctor. Return to the em ergency room immediately for any new or worsening symptoms. - Differential Diagnosis PUD, GERD, ACS, mass, obstruction, pancreatitis, hepatitis, cholecystitis Critical care attestation.: If time is entered above; I have spent that time in minutes in the direct care of this critically ill patient, excluding procedure time. ED Disposition Clinical Impression: Abdominal distention, Enteritis Chest pain Qualifiers: Chest pain type: unspecified Qualified Code(s): R07.9 - Chest pain, unspecified Abdominal pain Qualifiers: Abdominal location: generalized Qualified Code(s): R10.84 - Generalized abdominal pain Umbilical hernia Qualifiers: Obstruction and gangrene presence: without obstruction or gangrene Qualified Code(s): K42.9 - Umbilical hernia without obstruction or gangrene Disposition: TO HOME OR SELFCARE Is pt being admited?: No Does the pt Need Aspirin: No Condition: Stable Instructions: Chest Pain (ED), Gastritis (ED), Diet for Ulcers and Gastritis (ED), Abdominal Pain (ED) Additional Instructions: please take medication as prescribed. Please follow the diet for gastritis. Please follow-up with a machine sizer. Please follow-up with a GI doctor. Return to the emergency room immediately for any new or worsening symptoms. Prescriptions: Famotidine [Pepcid] 40 mg PO QHS #30 tablet amLODIPine 5 mg PO QDAY #30 tablet Sucralfate [Carafate] 1 gm PO ACHS #21 tablet Metoprolol [Lopressor TAB] 50 mg PO BID #60 tablet Referrals: DELLA MARQUEZ MD [Staff Physician] - 2-3 Days MELROSE JUAN EVERETT MD [Primary Care Provider] - 2-3 Days [facility] [Provider Group] - 2-3 Days Forms: Work/School Release Form(ED) Time of Disposition: 18:35 Print Language: MALAY
[2019-05-19 15:35] LABS: Bilirubin,Urine NEG (Negative); Blood,Urine NEG (Negative); Color,Urine Yellow (Yellow); Mucus,Urine FEW /HPF; Protein,Urine <15 mg/dL mg/dL (Negative)
--- NOTE | 2019-05-19 16:28 | Cat Scan Report ---
CT ABDOMEN AND PELVIS WITH CONTRAST HISTORY: MAIN: generalized abd pain, abdominal distension ABD SWELLING THAT COMES AND GOES AND GET [address] X 2 MONTHS . COMPARISON: None. TECHNIQUE: CT images of the abdomen and pelvis were obtained following administration of intravenous contrast. All CT scans at this location are performed using CT dose reduction for ALARA by means of automated exposure control. CONTRAST: 100 ml of intravenous contrast administered. FINDINGS: Lungs/bones: Lung bases are clear. There are mild degenerative changes in the spine and pelvis with no acute osseous abnormality. Abdomen/pelvis: There is hepatic steatosis with no focal mass identified. The gallbladder, spleen, p ancreas, adrenals, right kidney, and proximal GI tract appear unremarkable except for questionable mi ld wall thickening along the distal stomach near the antrum and pylorus extending to the duodenal bul b. Proximal GI tract otherwise appears unremarkable. There is a small fat-containing umbilical hernia . Moderately advanced atherosclerotic disease is present in the abdominal aorta and branch vessels. Urinary bladder is unremarkable. Uterus is surgically absent. No pelvic free fluid. There is colonic diverticulosis with no acute inflammatory change identified. The terminal ileum and appendix appear n ormal. A tiny follicle is again seen in the left ovary. IMPRESSION: 1. Questionable mild wall thickening along the distal stomach extending to the duodenal bulb. Correla te for potential enteritis or ulcerative disease. 2. Additional incidental findings as above. Signer Name: Artem Luis MD Signed: 05/19/2019 4:24 PM Workstation Name: [id number]
[2019-05-19] MEDS ORDERED: DICYCLOMINE 20 MG TAB PO ONE (16:36)
[2019-05-19] MEDS ORDERED: ALUM-MAG HYDROXIDE-SIMETHICONE 200-200-20MG/5ML ORAL LIQD 30 ML PO ONE (16:36)
[2019-05-19] MEDS ORDERED: LIDOCAINE VISCOUS 2% 15 ML ORAL LIQD PO ONE (16:36)
[2019-05-19 17:11] VITALS: BP 142/73
== END 2019-05-19 19:38 | disposition home or self-care (01) ==
LOC: ED 10:37
DX: K42.9 Umbilical hernia without obstruction or gangrene (principal); K52.9 Noninfective gastroenteritis and colitis, unspecified; R10.84 Generalized abdominal pain; R07.9 Chest pain, unspecified; R14.0 Abdominal distension (gaseous); I10 Essential (primary) hypertension; I25.2 Old myocardial infarction; K21.9 Gastro-esophageal reflux disease without esophagitis; E78.00 Pure hypercholesterolemia, unspecified; I25.10 Atherosclerotic heart disease of native coronary artery without angina pectoris; F17.200 Nicotine dependence, unspecified, uncomplicated; F10.10 Alcohol abuse, uncomplicated; Z90.710 Acquired absence of both cervix and uterus; Z79.899 Other long term (current) drug therapy; Z86.2 Personal history of diseases of the blood and blood-forming organs and certain disorders involving the immune mechanism; Z95.5 Presence of coronary angioplasty implant and graft
CPT/HCPCS: 36415; 71046; 74177; 80053; 81001; 83690; 84484; 85025; 85610; 85730; 93005; 93010; 99285; Q9967